=== PATIENT | male | born 1975 | race Caucasian/White ===

== ENCOUNTER 2021-06-08 20:15 | Emergency (ER) | payer MEDICAID ==
[~2021-06-08] VITALS: Ht 182.9 cm; Wt 95.5 kg
[2021-06-08 22:41] LABS: COVID AG,FIA SOURCE NASOPHARYNGEAL
[2021-06-09 00:28] VITALS: BP 134/88
== END 2021-06-09 00:28 | disposition home or self-care (01) ==
LOC: EMS 20:18
DX: Z20.822 Contact with and (suspected) exposure to COVID-19 (principal)
CPT/HCPCS: 87426; 99283; U0003